=== PATIENT | male | born 1970 | race Caucasian/White ===

== ENCOUNTER 2019-10-21 17:43 | Emergency (ER) | payer OTHER ==
[2019-10-21 17:54] VITALS: TEMP 98; BMI 34.0
--- NOTE | 2019-10-21 18:17 | PDOC ---
History of Present Illness - General Chief Complaint: Headache Stated Complaint: HEADACHE AND ELEVATED BLOOD PRESSURE Time Seen by Provider: 10/21/19 17:46 Past History - Past Medical History Allergies/Adverse Reactions: Allergies Allergy/AdvReac Type Severity Reaction Status Date / Time No Known Allergies Allergy Unverified 10/21/19 17:46 Home Medications: Ambulatory Orders NK [No Known Home Medication] 10/21/19 COPD: No Other medical history: DENIES - Psycho Social/Smoking Cessation Hx Smoking History: Never smoked Hx Alcohol Use: Yes (SOCIAL) Drug/Substance Use Hx: No *Physical Exam - Vital Signs Last Vital Signs Temp Pulse Resp BP Pulse Ox 98 F 73 18 207/127 H 98 10/21/19 17:45 10/21/19 17:45 10/21/19 17:45 10/21/19 17:45 10/21/19 17:45 - Physical Exam General Appearance: Yes: Nourished, Appropriately Dressed. No: Apparent Distress HEENT: positive: EOMI, CLEMENT, Normal Voice, Pharynx Normal, Nasal Congestion. negative: Pharyngeal Erythema, Tonsillar Exudate, Tonsillar Erythema Neck: positive: Trachea midline, Supple. negative: Tender midline Respiratory/Chest: positive: Lungs Clear, Normal Breath Sounds. negative: Respiratory Distress Cardiovascular: positive: Regular Rhythm, Regular Rate, S1, S2. negative: Edema Gastrointestinal/Abdominal: positive: Soft. negative: Guarding, Rebound, Tenderness Musculoskeletal: positive: Normal Inspection. negative: CVA Tenderness Extremity: positive: Normal Capillary Refill, Normal Inspection, Normal Range of Motion, Other (ambulatory with a steady gait) Integumentary: positive: Normal Color, Dry, Warm Neurologic: positive: classified ad taker II-XII NML intact, Fully Oriented, Alert, Normal Mood/ Affect, Normal Response, Motor Strength 5/5. negative: Sensory Deficit Medical Decision Making - Medical Decision Making 10/21/19 18:15 10/21/19 18:17 Discharge - Discharge Information Condition: Stable - Follow up/Referral - Patient Discharge Instructions - Post Discharge Activity
--- NOTE | 2019-10-21 18:19 | PDOC ---
Documentation entered by Alysha De La Cruz SCRIBE, acting as scribe for Nata Robledo DO. Nata Robledo DO: This documentation has been prepared by the Dorothy escobedo Joy, SCRIBE, under my direction and personally reviewed by me in its entirety. I confirm that the documentation accurately reflects all work, treatment, procedures, and medical decision making performed by me. History of Present Illness - General Chief Complaint: Headache Stated Complaint: HEADACHE AND ELEVATED BLOOD PRESSURE History Source: Patient - History of Present Illness Initial Comments: 10/21/19 18:25 The patient is a 49 year male old with significant past medical history of HLD who presents to the ED today with headache and elevated blood pressure. As per patient, he had a headache today and took sudafed DM x2 and did not read the directions (one at 11 AM and another at 12 PM) but his headache got worse. Patient reports that he measured his blood pressure at home (200/100) which prompted his arrival to the ED. The patient adds he had a recent sinus infection which has been getting better and was on azithromycin (completed) and took advil for cold symptoms. The patient denies chest pain, shortness of breath, or dizziness. Denies nausea , vomiting, or diarrhea. Denies burning during urination. Allergies: NKA Surgical History: hernia surgery Family History: father and mother w/ HTN Past History - Past Medical History Allergies/Adverse Reactions: Allergies Allergy/AdvReac Type Severity Reaction Status Date / Time No Known Allergies Allergy Unverified 10/21/19 17:46 Home Medications: Ambulatory Orders NK [No Known Home Medication] 10/21/19 Review of Systems - Review of Systems Able to Perform ROS?: Yes Comments:: 10/21/19 18:25 GENERAL/CONSTITUTIONAL: No fever or chills. No weakness. HEAD, EYES, EARS, NOSE AND THROAT: No change in vision. No ear pain or discharge. No sore throat. CARDIOVASCULAR: +Elevated blood pressure. No chest pain or shortness of breath. RESPIRATORY: No cough, wheezing, or hemoptysis. GASTROINTESTINAL: No nausea, vomiting, diarrhea or constipation. GENITOURINARY: No dysuria, frequency, or change in urination. MUSCULOSKELETAL: No joint or muscle swelling or pain. No neck or back pain. SKIN: No rash NEUROLOGIC: +Headache. No vertigo, loss of consciousness, or change in strength/ sensation. *Physical Exam - Vital Signs Last Vital Signs Temp Pulse Resp BP Pulse Ox 98 F 73 18 207/127 H 98 10/21/19 17:45 10/21/19 17:45 10/21/19 17:45 10/21/19 17:45 10/21/19 17:45 - Physical Exam General Appearance: Yes: Nourished, Appropriately Dressed. No: Apparent Distress HEENT: positive: EOMI, CLEMENT, Normal Voice, Pharynx Normal, Nasal Congestion. negative: Pharyngeal Erythema, Tonsillar Exudate, Tonsillar Erythema, Rhinorrhea , Sinus Tenderness Neck: positive: Trachea midline, Supple Respiratory/Chest: positive: Lungs Clear, Normal Breath Sounds. negative: Respiratory Distress Cardiovascular: positive: Regular Rhythm, Regular Rate, S1, S2. negative: Edema Gastrointestinal/Abdominal: positive: Normal Bowel Sounds, Soft. negative: Guarding, Rebound, Tenderness Musculoskeletal: positive: Normal Inspection. negative: Decreased Range of Motion Extremity: positive: Normal Capillary Refill, Normal Inspection, Normal Range of Motion. negative: Swelling, Calf Tenderness Integumentary: positive: Normal Color, Dry, Warm Neurologic: positive: job spotter II-XII NML intact, Fully Oriented, Alert, Normal Mood/ Affect, Normal Response, Motor Strength 5/5, Other (ambulatory with a steady gait). negative: Sensory Deficit Heart Score/ECG Review - ECG Intrepretation Comment:: 10/21/19 18:37 sinus deandre at 55, nl axis, nl interval, no acute st/t wave findings ED Treatment Course - LABORATORY CBC & Chemistry Diagram: 10/21/19 18:30 10/21/19 18:30 Medical Decision Making - Medical Decision Making 10/21/19 18:17 a/p: 49yo male with recent sinus infection on azithromycin who accidentally took 2 pseudofed DM today instead of tylenol -pt then developed a spicer and checked his BP and it was high -states spicer resolved -no cp/sob, no abd pain -no paresthesias, no weakness, no vision changes -pt arrives hypertensive, but denies all somatic complaints -will send labs, ekg, ua -will medicate for BP -will monitor and reassess 10/21/19 18:46 ua neg pt neuro intact pain free pt ambulatory in the ED with a steady gait pt to cxr 10/21/19 18:54 cxr clear 10/21/19 19:05 pt with uncontrolled bp- suspect adverse drug reaction pt signed out to the oncoming ED physician pending labs and repeat bp Discharge - Discharge Information Problems reviewed: Yes Clinical Impression/Diagnosis: Adverse drug reaction Condition: Stable - Follow up/Referral - Patient Discharge Instructions - Post Discharge Activity
[2019-10-21] MEDS ORDERED: amLODIPine BESYLATE 5 MG TABLET (FP) PO ONE (18:20)
[2019-10-21] MEDS ORDERED: amLODIPine BESYLATE 5 MG TABLET (FP) ONE (18:22)
[2019-10-21 18:46] LABS: BASO % 0.5 % (0-2.0); EOS % 1.6 % (0-4.5); HEMATOCRIT 46.5 % (35.4-49); HEMOGLOBIN 15.7 GM/dl (11.7-16.9); LYMPH % 11.7 % (8-40); MCH 29.9 pg (25.7-33.7); MCHC 33.9 g/dl (32.0-35.9); MEAN CELL VOLUME 88.2 fl (80-96); MEAN PLT VOLUME 8.5 fl (7.5-11.1); MONO % 6.1 % (3.8-10.2); NEUT % 80.1 % (42.8-82.8); PLATELET COUNT 272 K/MM3 (134-434); RBC 5.27 M/mm3 (4.00-5.60); RDW 12.1 % (11.9-15.9); WHITE BLOOD COUNT 11.8 K/mm3 (4.0-10.8)
[2019-10-21 18:53] LABS: INR 1.16 (0.82-1.09); PROTHROMBIN TIME (PATIENT) 12.9 SEC (10.2-13.0)
[2019-10-21 18:58] LABS: ALBUMIN 4.2 g/dl (3.4-5.0); BILIRUBIN,TOTAL 0.8 mg/dl (0.2-1); CALCIUM 9.5 mg/dl (8.5-10); CREATININE 1.1 mg/dl (0.55-1.3); POTASSIUM 3.8 mmol/L (3.5-5.1); TOT PROT 7.6 g/dl (6.4-8.2)
[2019-10-21 20:02] VITALS: PULSE 77
[2019-10-21] MEDS ORDERED: cloNIDine HCL 0.1 MG TABLET PO ONE (20:09)
--- NOTE | 2019-10-21 20:10 | PDOC ---
*Physical Exam - Vital Signs Last Vital Signs Temp Pulse Resp BP Pulse Ox 98 F 77 16 184/123 H 98 10/21/19 17:45 10/21/19 20:01 10/21/19 20:01 10/21/19 20:01 10/21/19 17:45 ED Treatment Course - LABORATORY CBC & Chemistry Diagram: 10/21/19 18:30 10/21/19 18:30 - ADDITIONAL ORDERS Additional order review: Laboratory Results 10/21/19 10/21/19 10/21/19 18:30 18:30 18:30 PT with INR 12.9 INR 1.16 Sodium 135 L Potassium 3.8 Chloride 100 Carbon Dioxide 25 Anion Gap 10 BUN 18.0 Creatinine 1.1 Est GFR (CKD-EPI)AfAm 89.61 Est GFR (CKD-EPI)NonAf 77.32 Random Glucose 89 Calcium 9.5 Total Bilirubin 0.8 AST 28 ALT 28 Alkaline Phosphatase 82 Creatine Kinase 289 Creatine Kinase Index 1.3 CK-MB (CK-2) 3.8 H Troponin I < 0.03 Total Protein 7.6 Albumin 4.2 TSH 0.59 Urine Color Urine Appearance Urine pH Urine Protein Urine Glucose (UA) Urine Ketones Urine Blood Urine Nitrite Urine Bilirubin Urine Urobilinogen Ur Leukocyte Esterase 10/21/19 18:00 PT with INR INR Sodium Potassium Chloride Carbon Dioxide Anion Gap BUN Creatinine Est GFR (CKD-EPI)AfAm Est GFR (CKD-EPI)NonAf Random Glucose Calcium Total Bilirubin AST ALT Alkaline Phosphatase Creatine Kinase Creatine Kinase Index CK-MB (CK-2) Troponin I Total Protein Albumin TSH Urine Color Yellow Urine Appearance Clear Urine pH 7.0 Urine Protein Negative Urine Glucose (UA) Negative Urine Ketones Negative Urine Blood Negative Urine Nitrite Negative Urine Bilirubin Negative Urine Urobilinogen 0.2 Ur Leukocyte Esterase Negative 10/21/19 18:30 RBC 5.27 MCV 88.2 MCHC 33.9 RDW 12.1 MPV 8.5 Neutrophils % 80.1 Lymphocytes % 11.7 Monocytes % 6.1 Eosinophils % 1.6 Basophils % 0.5 - Medications Given in the ED: ED Medications Discontinued Medications Generic Name Dose Route Start Last Admin Trade Name Freq PRN Reason Stop Dose Admin Amlodipine Besylate 5 mg 10/21/19 18:20 10/21/19 18:24 Norvasc - PO 10/21/19 18:21 5 mg ONCE ONE Administration ED Progress Note - Progress Note Progress Note: Care of this patient received from Dr. Robledo Laboratory evaluation is essentially normal (except for mild elevation white blood cell count 11,800) Approximately 90 minutes after receiving amlodipine, repeat BP measurement revealed persistent marked hypertension (184/123). Patient remains asymptomatic Clonidine 0.1 mg given. Approximately 30 minutes after clonidine dosage, blood pressure measured at 158/ 105 Patient denies symptoms. Patient will be discharged with follow-up as previously scheduled with his PMD on October 24. He has been cautioned to avoid pseudoephedrine. Discharge - Discharge Information Problems reviewed: Yes Clinical Impression/Diagnosis: Adverse drug reaction Condition: Stable Disposition: HOME - Follow up/Referral - Patient Discharge Instructions Patient Printed Discharge Instructions: DI for Adverse Drug Reaction -- Other Additional Instructions: Avoid pseudoephedrine (Sudafed) in the future Return to ER if you have persistent high blood pressure or headache/ lightheadedness Follow-up with your general doctor within the next 3 to 4 days - Post Discharge Activity
[2019-10-21] MEDS ORDERED: cloNIDine HCL 0.1 MG TABLET ONE (20:14)
[2019-10-21 20:58] VITALS: BP 158/105
--- NOTE | 2019-10-22 10:15 | EKG ---
Test Reason : Blood Pressure : / mmHG Vent. Rate : 055 BPM Atrial Rate : 055 BPM P-R Int : 140 ms QRS Dur : 100 ms QT Int : 406 ms P-R-T Axes : 052 044 029 degrees QTc Int : 388 ms SINUS BRADYCARDIA POSSIBLE LEFT ATRIAL ENLARGEMENT NONSPECIFIC T WAVE ABNORMALITY ABNORMAL ECG NO PREVIOUS ECGS AVAILABLE Confirmed by MD Lamberto, Willard ([id number]) on 10/22/2019 10:15:03 AM Referred By: Confirmed By:Willard Orantes MD
== END 2019-10-21 21:13 | disposition home or self-care (01) ==
LOC: FER 17:43
DX: T78.1XXA Other adverse food reactions, not elsewhere classified, initial encounter (principal); X58.XXXA Exposure to other specified factors, initial encounter; E78.5 Hyperlipidemia, unspecified
CPT/HCPCS: 36415; 71046-TC-FY; 80053; 81003; 82550; 82553; 84443; 84484; 85025; 85610; 93005; 99283-25; J0735